=== PATIENT | female | born 1980 | race Hispanic/Latino ===

== ENCOUNTER 2023-03-19 22:22 | Emergency (ER) | payer OTHER ==
[~2023-03-19] VITALS: Ht 162.6 cm; Wt 114.3 kg
[2023-03-19 23:44] VITALS: BP 132/74
[2023-03-19] MEDS ORDERED: SULF1TAB42 PO (23:58)
[2023-03-19] MEDS ORDERED: DOXY-252 PO (23:58)
[2023-03-19] MEDS ORDERED: IBUP-1493 PO (23:58)
== END 2023-03-20 00:20 | disposition home or self-care (01) ==
LOC: EDH 22:22
DX: L02.31 Cutaneous abscess of buttock (principal); L03.317 Cellulitis of buttock; E11.9 Type 2 diabetes mellitus without complications; Z90.49 Acquired absence of other specified parts of digestive tract

== ENCOUNTER 2024-01-08 20:36 | Emergency (ER) | payer BC, OTHER ==
[~2024-01-08] VITALS: Ht 162.6 cm; Wt 104.8 kg
[~2024-01-08 20:36] MED LIST: DOXY-252 PO; IBUP-1493 PO; SULF1TAB42 PO
[2024-01-08 21:12] LABS: RAPID GROUP A STREP NEGATIVE (NEGATIVE)
[2024-01-08 21:18] LABS: COVID19 (SARS ANTIGEN RAPID) PRESUMPTIVE NEGATIVE (NEGATIVE); INFLUENZA TYPE A Negative For Type A (NEGATIVE); INFLUENZA TYPE B Negative For Type B (NEGATIVE)
[2024-01-08 21:36] LABS: HCG,QUALITATIVE URINE NEGATIVE (NEGATIVE)
[2024-01-08 21:37] LABS: APPEARANCE,URINE CLEAR (CLEAR); BILIRUBIN,URINE NEGATIVE (NEGATIVE); COLOR,URINE LIGHT-YELLOW (YELLOW); GLUCOSE, URINE (UA) >=1000 mg/dL (NEGATIVE); KETONES,URINE NEGATIVE (NEGATIVE); LEUKOCYTE ESTERASE ,URINE 500 Leu/uL (NEGATIVE); NITRATE,URINE NEGATIVE (NEGATIVE); PH,URINE 6.5 (5.0-8.0); PROTEIN,URINE 20 mg/dL (NEGATIVE); UROBILINOGEN,URINE 0.2 mg/dL (0.2-1.0)
[2024-01-08 21:38] LABS: ADD UA MICROSCOPIC YES
[2024-01-08 21:45] LABS: MUCUS,URINE RARE LPF (None Seen); SQUAMOUS EPITHELIAL CELL,UR RARE /HPF (0-2); WBC,URINE TNTC /HPF (0-1)
[2024-01-08] MEDS: ACETAMINOPHEN 500 MG TABLET PO ONE (21:46)
[2024-01-08 21:50] VITALS: BP 138/74; PULSE 84; RESP 17; O2SAT 98
[2024-01-08] MEDS: AMOX/CLAV 875/125MG TAB PO ONE (21:55)
[2024-01-08] MEDS ORDERED: AMOX1TAB16 PO (21:58)
== END 2024-01-08 22:12 | disposition home or self-care (01) ==
LOC: EDH 20:36
DX: N30.01 Acute cystitis with hematuria (principal); J02.9 Acute pharyngitis, unspecified; R50.9 Fever, unspecified; E11.9 Type 2 diabetes mellitus without complications; Z20.822 Contact with and (suspected) exposure to COVID-19; Z79.899 Other long term (current) drug therapy; Z90.49 Acquired absence of other specified parts of digestive tract
CPT/HCPCS: 81001; 81025; 87077; 87088; 87186; 87426; 87804; 87880